=== PATIENT | female | born 1945 | race Caucasian/White ===

== ENCOUNTER 2017-12-16 11:34 | Day surgery (SDC) | payer MEDICARE, OTHER ==
[~2017-12-16] VITALS: Ht 154.9 cm; Wt 52.3 kg
[2017-12-16] MEDS ORDERED: ALEN70 PO (12:34)
[2017-12-16] MEDS ORDERED: CENTRUM SILVER1 EAC3 PO (12:34)
[2017-12-16] MEDS ORDERED: FLAX PO (12:34)
[2017-12-16] MEDS ORDERED: ATOR40TA PO (12:34)
== END 2017-12-16 15:53 | disposition home or self-care (01) ==
LOC: ORSCSDS 11:34
PROVIDERS: Orthopaedic Surgery
PROC: 0LQ14ZZ Repair Right Shoulder Tendon, Percutaneous Endoscopic Approach (ICD-10-PCS; principal; 2017-12-16 13:15)
PROC: 0RNJ4ZZ Release Right Shoulder Joint, Percutaneous Endoscopic Approach (ICD-10-PCS; principal; 2017-12-16 13:15)
PROC: 0LS14ZZ Reposition Right Shoulder Tendon, Percutaneous Endoscopic Approach (ICD-10-PCS; principal; 2017-12-16 13:15)
DX: M75.121 Complete rotator cuff tear or rupture of right shoulder, not specified as traumatic (principal); M75.21 Bicipital tendinitis, right shoulder; M75.52 Bursitis of left shoulder; M75.41 Impingement syndrome of right shoulder; J44.9 Chronic obstructive pulmonary disease, unspecified; Z87.891 Personal history of nicotine dependence; Z79.899 Other long term (current) drug therapy
CPT/HCPCS: C1713; J0171; J0690; J1100; J1885; J2250; J2405; J2710; J3010; J7120

== ENCOUNTER → 2019-02-16 | Outpatient (CLI) | payer MEDICARE, OTHER ==
[~2019-02-16] MED LIST: ALEN70 PO; ATOR40TA PO; CENTRUM SILVER1 EAC3 PO; FLAX PO
== END | disposition home or self-care (01) ==
LOC: LAB EV 11:03 → LAB SHORT 11:03
DX: R30.0 Dysuria (principal)
CPT/HCPCS: 87077; 87086; 87186

== ENCOUNTER → 2021-08-10 | Outpatient (CLI) | payer MEDICARE, OTHER | LOC: LAB SHORT 16:12 | DX: M54.50 Low back pain, unspecified (principal); R82.79 Other abnormal findings on microbiological examination of urine | CPT/HCPCS: 87086 ==

== ENCOUNTER → 2022-05-07 | Outpatient (CLI) | payer MEDICARE, OTHER | LOC: LAB SHORT 11:11 → LAB 11:11 | DX: R30.0 Dysuria (principal) | CPT/HCPCS: 87077; 87086; 87186 ==

== ENCOUNTER → 2024-09-13 | Outpatient (CLI) | payer MEDICARE, OTHER | LOC: LAB SHORT 11:59 → LAB 11:59 | DX: N39.0 Urinary tract infection, site not specified (principal) | CPT/HCPCS: 87077; 87086; 87186 ==

== ENCOUNTER → 2025-05-19 | Outpatient (CLI) | payer MEDICARE, OTHER ==
[2025-05-19 11:54] LABS: BASOPHILS ABSOLUTE AUTO 0.03 K/mm3 (0.00-0.23); BASOPHILS PERCENT AUTO 1 % (0-2); EOSINOPHILS ABSOLUTE AUTO 0.04 K/mm3 (0.00-0.68); EOSINOPHILS PERCENT AUTO 1 % (0-6); Hematocrit 38.3 % (33.0-51.0); Hemoglobin 13.5 g/dL (11.5-16.0); IMMATURE GRAN ABSOLUTE AUTO 0.01 K/mm3 (0.00-0.10); IMMATURE GRAN PERCENT AUTO 0 % (0-1); LYMPHOCYTES ABSOLUTE AUTO 1.94 K/mm3 (0.84-5.20); LYMPHOCYTES PERCENT AUTO 31 % (21-46); MONOCYTES ABSOLUTE AUTO 0.44 K/mm3 (0.16-1.47); MONOCYTES PERCENT AUTO 7 % (4-13); Mean Corpuscular HGB Conc 35.2 g/dL (31.5-36.5); Mean Corpuscular Volume 96 fL (80-100); NEUTROPHILS ABSOLUTE AUTO 3.74 K/mm3 (1.96-9.15); NEUTROPHILS PERCENT AUTO 60 % (41-73); NRBC ABSOLUTE 0.00 K/mm3 (0.00-0.02); NRBC Auto 0.0 /100 WBC (0.0-0.2); Platelet Count 187 K/mm3 (150-400); RDW Coefficient Variation 11.9 % (11.7-14.2); RDW Standard Deviation 41.4 fL (35.1-46.3)
[2025-05-19 12:04] LABS: Alanine Aminotransfer (ALT/SGP 22.0 U/L (12-78); Albumin, Blood 3.7 g/dL (3.4-5.0); Albumin/Globulin Ratio 1.2 (0.8-1.8); Anion Gap 13.0 mmol/L (3-11); Aspartate Aminotrans (AST/SGOT 19.0 U/L (12-37); Bilirubin, Total 0.6 mg/dL (0.1-1.0); Blood Urea Nitrogen 18.0 mg/dL (8-24); CO2, Blood 28.0 mmol/L (21-32); Calcium, Blood 9.2 mg/dL (8.5-10.1); Chloride, Blood 101.0 mmol/L (98-108); Creatinine, Blood 0.93 mg/dL (0.40-1.00); Globulin, Blood 3.0 g/dL (2.2-4.0); Glucose, Blood 148.0 mg/dL (70-99); Potassium, Blood 4.1 mmol/L (3.5-5.5); Sodium, Blood 138.0 mmol/L (136-145); Total Protein, Blood 6.7 g/dL (6.4-8.2)
== END ==
LOC: LAB 11:49 → LAB SHORT 11:49
PROVIDERS: Physician Assistant
DX: R10.32 Left lower quadrant pain (principal); R82.998 Other abnormal findings in urine
CPT/HCPCS: 80053; 85025; 87086